=== PATIENT | female | born 1995 | race American Indian/Alaskan Native ===

== ENCOUNTER 2022-07-01 15:12 | Emergency (ER) | payer SELFPAY ==
[2022-07-01 22:00] LABS: Bacteria,Urine 1+ /HPF (Negative)
[2022-07-01 22:05] LABS: HCG Qualitative,Urine Negative (Negative)
[2022-07-01 22:05] LABS: Color,Urine Straw (Yellow)
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
--- NOTE | 2022-07-01 22:37 | XRay Report ---
LEFT RIBS 5 VIEWS INDICATION / CLINICAL INFORMATION: left rib pain blunt trauma. COMPARISON: None available. FINDINGS: RIBS: No acute, displaced fracture or other acute abnormality. CARDIAC SILHOUETTE: The cardiomediastinal silhouette appears within normal limits. LUNGS: No acute findings. No pneumothorax. ADDITIONAL FINDINGS: No significant additional findings. IMPRESSION: 1. No displaced rib fracture. No evidence of acute traumatic injury involving the chest. Signer Name: Oh Troy II, MD Signed: 07/01/2022 10:33 PM Workstation Name: [id number]
[2022-07-01 23:00] LABS: Basophils % (Auto) 0.8 % (0.0-1.8); Eosinophils # (Auto) 0.1 K/mm3 (0.0-0.4); Eosinophils % (Auto) 1.3 % (0.0-4.3); Hemoglobin 12.3 gm/dl (10.1-14.3); Lymphocytes # (Auto) 2.2 K/mm3 (1.2-5.4); Lymphocytes % (Auto) 37.1 % (13.4-35.0); Mean Corpuscular HGB Conc 32 % (30-34); Mean Corpuscular Volume 90 fl (79-97); Monocytes # (Auto) 0.5 K/mm3 (0.0-0.8); Platelet Count 373 K/mm3 (140-440); Red Blood Count 4.32 M/mm3 (3.65-5.03); Red Cell Distribution Width 15.4 % (13.2-15.2)
[2022-07-01 23:53] VITALS: BP 122/76
== END 2022-07-01 23:53 | disposition home or self-care (01) ==
LOC: ED 15:12
DX: R07.81 Pleurodynia (principal); N92.1 Excessive and frequent menstruation with irregular cycle
CPT/HCPCS: 36415; 81001; 81025; 85025; 99283